=== PATIENT | female | born 1955 | race Caucasian/White ===

== ENCOUNTER 2024-06-25 15:10 | Outpatient (CLI) | payer MEDICARE | END 2024-06-25 15:11 | disposition home or self-care (01) | LOC: CSHRAD 15:10 | PROVIDERS: ATTEND Orthopaedic Surgery | DX: M54.50 Low back pain, unspecified (principal); M43.17 Spondylolisthesis, lumbosacral region; M47.817 Spondylosis without myelopathy or radiculopathy, lumbosacral region; S32.019A Unspecified fracture of first lumbar vertebra, initial encounter for closed fracture; S32.039A Unspecified fracture of third lumbar vertebra, initial encounter for closed fracture | CPT/HCPCS: 72100 ==

== ENCOUNTER → 2025-01-07 | Emergency (ER) | payer MEDICARE ==
[2025-01-07 12:35] LABS: #Basophils 0.04 10x3/uL (0.0-0.2); #Eosinophils 0.95 10x3/uL (0.0-0.5); #Monocytes 0.45 10x3/uL (0.0-1.1); #Neutrophils 3.56 10x3/uL (1.5-8.4); %Basophils 0.7 % (0.0-2.0); %Eosinophils 16.0 % (0.0-6.0); %Lymphocytes 15.3 % (18.0-47.0); %Monocytes 7.6 % (0.0-10.0); %Neutrophils 60.1 % (40.0-75.0); ALT (SGPT) 25 U/L (Less than 34); AST (SGOT) 49 U/L (11-34); Albumin 3.1 g/dL (3.1-4.5); Alkaline Phosphatase 101 U/L (40-110); Anion Gap 9 mmol/L (10-20); BUN (Urea Nitrogen) 15 mg/dL (9.8-20.1); Bilirubin, Total 5.0 mg/dL (0.3-1.2); Calc. Creatinine Clearance 0 mL/min (70-130); Calcium 8.3 mg/dL (7.8-10.44); Carbon Dioxide 25 mmol/L (23-31); Chloride 107 mmol/L (98-107); Globulin 4.0 g/dL (2.4-3.5); Glucose 93 mg/dL (83-110); Hematocrit 36.1 % (34.9-44.5); Hemoglobin 12.3 g/dL (12.0-15.5); Mean Corpuscular Hemoglobin 34.3 pg (27.0-33.0); Mean Corpuscular Volume 100.6 fL (81.6-98.3); Potassium 4.1 mmol/L (3.5-5.1); Red Blood Cell (RBC) Count 3.59 10x6/uL (3.90-5.03); Sodium 137 mmol/L (136-145); White Blood Cell (WBC) Count 5.93 10x3/uL (3.5-10.5)
[2025-01-07 12:40] LABS: Troponin I 0.014 ng/mL (< 0.028)
[2025-01-07 12:54] LABS: Platelet Count 56 10x3/uL (150-450)
[2025-01-07 12:55] LABS: MDiff Complete? YES; Platelet Adequacy Comment Appears Decreased; RBC Morphology Within Normal Limits
== END ==
LOC: CSHERS 11:08
DX: I16.9 Hypertensive crisis, unspecified (principal); I10 Essential (primary) hypertension; Z87.891 Personal history of nicotine dependence
CPT/HCPCS: 36415; 70450; 71045; 80053; 83880; 84484; 85025; 93005

== ENCOUNTER 2025-06-23 14:55 | Outpatient (CLI) | payer MEDICARE ==
[~2025-06-23 14:55] MED LIST: Iopamidol 300 61% 100 ML VIAL FS ONE
[2025-06-23 17:08] LABS: Estimated GFR - POC 68.0
== END 2025-06-23 14:56 | disposition home or self-care (01) ==
LOC: CSHCT 14:55
PROVIDERS: ATTEND Internal Medicine
DX: K74.60 Unspecified cirrhosis of liver (principal); I85.00 Esophageal varices without bleeding; K21.9 Gastro-esophageal reflux disease without esophagitis; R14.3 Flatulence; R16.1 Splenomegaly, not elsewhere classified; J90 Pleural effusion, not elsewhere classified; R18.8 Other ascites
CPT/HCPCS: 36415; 74170; 82565